=== PATIENT | male | born 1955 | race Caucasian/White ===

== ENCOUNTER 2016-09-20 05:41 | Day surgery (SDC) | payer OTHER ==
[2016-09-20] MEDS ORDERED: IV START KIT ONE (05:55)
[2016-09-20] MEDS ORDERED: CEFAZOLIN SODIUM 2 GRAM PREMIX 100 ML IV ONE (05:55)
[2016-09-20] MEDS ORDERED: LACTATED RINGERS 1,000 ML ONE (05:55)
[2016-09-20] MEDS ORDERED: CEFAZOLIN SODIUM 2 GRAM PREMIX 100 ML IV PRN (06:00)
[2016-09-20] MEDS ORDERED: FENTANYL 5 ML ONE ×2 (06:31→08:47)
[2016-09-20] MEDS ORDERED: ROCURONIUM BROMIDE 10 MG/ML DOSE IV ONE (06:31)
[2016-09-20] MEDS ORDERED: PROPOFOL 20 ML IV ONE (06:31)
[2016-09-20] MEDS ORDERED: ROPIVACAINE 0.5% 30 ML VIAL ONE (06:31)
[2016-09-20] MEDS ORDERED: LIDOCAINE 2% (PRES FREE) 5 ML VIAL ONE (06:31)
[2016-09-20] MEDS ORDERED: ONDANSETRON 4 MG/2ML 2 ML VIAL ONE (06:31)
[2016-09-20] MEDS ORDERED: DEXAMETHASONE SOD PHOS 4 MG/1 ML VIAL ONE ×2 (06:31→08:05)
[2016-09-20] MEDS ORDERED: KETOROLAC TROMETHAMINE 30 MG/ML 1 ML VIAL ONE (06:31)
[2016-09-20] MEDS ORDERED: MIDAZOLAM HCL 5 MG/5 ML VIAL ONE (06:31)
[2016-09-20] MEDS ORDERED: BUPIVACAINE 0.5% (PRES FREE) 30 ML VIAL ONE (07:21)
[2016-09-20] MEDS ORDERED: HYDROMORPHONE HCL 2 MG/ML SYRINGE ONE ×2 (08:18→08:48)
[2016-09-20] MEDS ORDERED: HYDROMORPHONE HCL 1 MG/ML SYRINGE IV PRN (08:23)
[2016-09-20] MEDS ORDERED: ONDANSETRON 4 MG/2ML 2 ML VIAL IV PRN ×2 (08:23→11:57)
[2016-09-20] MEDS ORDERED: PROMETHAZINE HCL 25 MG/ML VIAL IM PRN (08:23)
[2016-09-20] MEDS ORDERED: FENTANYL 100 MCG/2 ML VIAL IV PRN (08:23)
[2016-09-20] MEDS ORDERED: LACTATED RINGERS 1,000 ML IV SCH ×2 (08:30→11:57)
--- NOTE | 2016-09-20 10:28 | RAD ---
RIGHT CLAVICLE 2 VIEWS INTRAOPERATIVE FLUOROSCOPY HISTORY: Right clavicular fracture repair. TECHNIQUE: 19.3 seconds of fluoroscopy time was provided for Dr. Hinojosa for purposes of procedural guidance. 2 fluoroscopic spot images were submitted for review. FINDINGS: Imaging depicts malleable plate and screw fixation of previously noted comminuted right clavicular fracture. Alignment on frontal view appears near-anatomic. IMPRESSION: Fluoroscopy provided for procedural guidance, for open reduction and internal fixation of the right clavicle..
--- NOTE | 2016-09-20 10:49 | PCMBPN ---
Brief Post Op Note: Date of Procedure: 09/20/16 Preoperative Diagnosis: 1. right diaphyseal clavicle fracture Postoperative Diagnosis: 1. [Same] Procedure: right diaphyseal clavicle fracture ORIF Surgeon: Jaxon Hinojosa MD Assist: Chacha HORNE Anesthesia: GETA, 30mL 0.5% marcaine without epi Findings: as expected, Synthes right clavicle plate fixed with 3.5mm screws nonlocking and 2 x 2.7mm screws anterior to posterior for the mid-shaft comminuted piece Condition: extubated, stable vitals, transferred to pacu Complications: None IV Fluids: 1600 mLs of LR Urine Output: 0 mLs Estimated Blood Loss: 150 mLs Tourniquet Time: [N/A] Specimens: [N/A] Implants: See above Drains: [N/A] PLAN: NWB on the RUE. Sling at all times. Oxycodone for pain control and Keflex for post-op abx. ASA for DVT prophylaxis.
--- NOTE | 2016-09-20 11:48 | RAD ---
RIGHT CLAVICLE 2 VIEWS HISTORY: Postop status post fracture repair. COMPARISONS: 09/15/2016 plain films, fluoroscopy of the same date. TECHNIQUE: Frontal and axial views of the right clavicle. FRACTURE: Redemonstration of comminuted right clavicular fracture, now status post malleable plate and screw fixation. Fracture fragment alignment is near-anatomic, with a mildly displaced small secondary fragment. No new displaced acute fracture. RIGHT SHOULDER: Evidence of prior right shoulder arthroplasty. SOFT TISSUES: Residual soft tissue swelling. IMPRESSION: Postoperative change status post open reduction and internal fixation of the right clavicle, fracture fragment alignment near-anatomic.
[2016-09-20] MEDS ORDERED: MORPHINE SULFATE 2 MG/ML SYRINGE IV PRN (11:57)
[2016-09-20] MEDS ORDERED: OXYCODONE HCL 5 MG TABLET PO PRN (11:57)
[2016-09-20] MEDS ORDERED: DIPHENHYDRAMINE HCL 50 MG/1 ML VIAL IV PRN (11:57)
--- NOTE | 2016-09-20 15:45 | OP ---
Rolando CARDONA : 1955 [id number] DATE OF PROCEDURE: September 20, 2016 PREOPERATIVE DIAGNOSIS: Right diaphyseal clavicle fracture. POSTOPERATIVE DIAGNOSIS: Right diaphyseal clavicle fracture. PROCEDURE: RIGHT DIAPHYSEAL CLAVICLE FRACTURE OPEN REDUCTION INTERNAL FIXATION. SURGEON: Jaxon Hinojosa M.D. SUPPORT ARCHITECT: Michael Subramanian ANESTHESIA: General along with 30 mL of 0.5% Marcaine without epinephrine. FINDINGS: As suspected the patient had a comminuted mid-shaft diaphyseal fracture. The patient's fracture was exposed. I placed an eight hole Synthes right clavicle plate. This was a superior plate 3.5 mm nonlocking screws were placed from superior to inferior and a 2 x 2.7 mm screws were placed anterior to posterior to fix the comminuted segment. CONDITION: Extubated with stable vital signs and transferred to the PACU. COMPLICATIONS: None. INTRAVENOUS FLUIDS: 1600 mL of Lactate Ringer's. URINE OUTPUT: 0 mL ESTIMATED BLOOD LOSS: 150 mL SPECIMENS: N/A TOURNIQUET TIME: N/A IMPLANTS: See above. DRAINS: N/A PLAN: The patient will be nonweightbearing on the right upper extremity. Oxycodone will be used for pain control and Keflex for postoperative antibiotics. Aspirin for DVT prophylaxis. INDICATIONS: The patient is a 61-year-old male who sustained an injury to his right shoulder after sustaining a fall from a 10 foot ladder. He had an intracranial bleed diagnosed at [facility] and was admitted. The work up revealed a scapular body fracture along with a right rib fracture and a comminuted mid-shaft clavicle fracture. The patient is not close to 2.5 weeks from his injury. He and I spoke about the risks and benefits of nonoperative and surgical treatment. I told him that there was a chance that this would heal with nonoperative treatment, however I could not guarantee this. We spoke about the 2 cm gap between the two fracture fragments. I talked to him about his options and after a lengthy description he opted to proceed with surgery. I spoke to Dr. Echeverria prior to the surgery about the risk with general anesthesia. She felt that this was minimal and we decided to proceed with surgery. He understood that there are risks of infection, need for potential removal of the plate, numbness by his incision as well as other possible complications such as nonhealing of the fracture. After discussing this at length with the patient he decided to proceed. PROCEDURE DESCRIPTION: The patient was seen in the preoperative area where I confirmed that the right side was the correct side and that our planned procedure was a right clavicle fracture open reduction internal fixation. I signed the patient's right arm with my initials and the word, "yes." This is the same side as the ipsilateral scapular body fracture. At this point he was seen by the anesthesia team who spoke to him about doing a general anesthetic. He did agree. He was then transferred from the preoperative area to the operating theater where he was placed supine on a beach chair. The patient was placed to sleep under intravenous sedation and intubated and placed asleep under general anesthesia. With this in place I then proceeded to shave his shoulder hair so the entire clavicle was exposed up to the sternoclavicular joint. His head was placed in a neutral position with his head elevated approximately 30 degrees. His hips were flexed at 45 degrees, knees were well padded and SCDs were on for Intraoperative DVT prophylaxis. Next, the bed was rotated approximately 30 to 40 degrees. At this time the patient was draped with plastic wrap so that his entire clavicle was exposed. Chlorhexidine scrub and then prep was then used to clean the arm. An Ioban was placed on the arm prior to making an anterior 8 cm incision. At this point we performed a final time out confirming that the right side was the correct side and that our planned procedure was open reduction internal fixation of the right clavicle and that I had answered all of the patient's questions. At this point we were ready to begin. I then used a #10 blade to incise the skin. I used Bovie cautery to control subcutaneous bleeding. I used a Schnidt to dissect down through the deltoclavicular fascia where this was exposed. I then proceeded to keep all subcutaneous nerves in place as I raised a full thickness trapezial flap. I could feel that there was some healing between the two fracture fragments, however the more medial piece was raised up to the tip of fascia tenting it, compared to be more lateral piece. I then isolated the more anterior fragment. This had good soft tissue attachment, I thought that it would be appropriate to try to affix this in place. Next, I used a periosteal elevator elevating the fascia off of the clavicle. I proceeded to get my reduction with two lobster claw clamps. I selected and eight hole plate. I bent this more medially so that it could fit better on the clavicle. After this was fixed in place I proceeded to place my more medial two screws. I then proceeded to reduce the lateral fragment, with placing the middle hole over the fracture itself. I then placed the tube lateral screws bridging the fracture itself. I then proceeded to use a 2.0 drill bit to drill two lag screws breathing the comminuted piece into the fracture itself. After this was performed I checked the screw lengths with C-arm shots. I was happy with its appearance and was ready to close. After the wound was irrigated closure was performed with interrupted #2-0 Ethibond followed by interrupted #0 Vicryl, interrupted #2-0 Vicryl in a running Monocryl suture and fibrin glue. The patient will be nonweightbearing on the right upper extremity for close to six weeks after this surgery. Prior to putting the fibrin glue in he had 30 mL of Marcaine and was given a prescription for oxycodone as well as Keflex for postoperative prescriptions. Job [id number] CC: Talihina Jane
== END 2016-09-20 14:35 | disposition home or self-care (01) ==
LOC: SDC 05:41
PROVIDERS: ATTEND Orthopaedic Surgery
PROC: 0PS904Z Reposition Right Clavicle with Internal Fixation Device, Open Approach (ICD-10-PCS; principal; 2016-09-20)
DX: S42.021A Displaced fracture of shaft of right clavicle, initial encounter for closed fracture (principal); M19.012 Primary osteoarthritis, left shoulder; S42.111D Displaced fracture of body of scapula, right shoulder, subsequent encounter for fracture with routine healing; W19.XXXA Unspecified fall, initial encounter